=== PATIENT | female | born 2000 | race Caucasian/White ===

== ENCOUNTER 2018-05-12 22:23 | Observation (INO) | payer OTHER ==
[2018-05-12] MEDS ORDERED: ONDANSETRON 4 MG/2 ML VIAL IVP ONE (22:46)
[2018-05-12] MEDS ORDERED: NS 1,000 ML IV ONE (22:46)
--- NOTE | 2018-05-12 22:47 | EDPHY ---
H & P Stated Complaint: LLQ ABD PAIN Time Seen by Provider: 05/12/18 22:29 HPI/ROS: CHIEF COMPLAINT: Bilateral lower abdominal pain left greater than right, HISTORY OF PRESENT ILLNESS: 17-year-old female no history of abdominal surgeries, via private vehicle complaining of left lower quadrant abdominal pain since this morning with associated nausea, vomiting. Bowel movements normal. Urinary habits normal. No flank pain. No vaginal bleeding. No dyspareunia. PRIMARY CARE PROVIDER: REVIEW OF SYSTEMS: 10 systems reviewed and negative with the exception of the elements mentioned in the history of present illness PAST MEDICAL & SURGICAL HISTORY: Chlamydia 1 year ago which was treated SOCIAL HISTORY: Student. PHYSICAL EXAM (Prior to examination, patient consented to physical exam, hands were washed and my usual and customary physical exam procedures followed) 1) GENERAL: Well-developed, well-nourished, alert and oriented. Appears uncomfortable 2) HEAD: Normocephalic, atraumatic 3) HEENT: Pupils equal, round, reactive to light bilaterally. Sclera anicteric. 4) NECK: Full range of motion, no meningeal signs. 5) LUNGS: Clear auscultation bilaterally, no wheezes, no rhonchi, no retractions. 6) HEART: Regular rate and rhythm, no murmur, no heave, no gallop. 7) ABDOMEN: No guarding, tender to palpation bilateral lower quadrants, left greater than right, negative McBurney's, negative Pittman's, negative Rovsing's, negative peritoneal sign, 8) MUSCULOSKELETAL: Moving all extremities, no focal areas of tenderness, no obvious trauma. No peripheral edema or discoloration. 9) BACK: No CVA tenderness, no midline vertebral tenderness, no fluctuance, no step-off, no obvious trauma, no visual or palpable abnormality. 10) SKIN: No rash, no petechiae. 11) Psychiatric: Patient is oriented X 3, there is no agitation. DIFFERENTIAL DIAGNOSIS: My differential diagnosis includes, but is not limited to, acute appendicitis, acute cholecystitis, bowel obstruction, acute pancreatitis, ovarian torsion, ectopic , gastritis and urinary tract infection. The patient understands that this diagnosis is provisional and can never be 100% accurate. This is a partial list of diagnoses considered. These considerations are based on history, physical exam, past history and reassessment. - Personal History LMP (Females 10-55): Unknown Current Tetanus Diphtheria and Acellular Pertussis (TDAP): Yes - Medical/Surgical History Hx Asthma: No Hx Chronic Respiratory Disease: No Hx Diabetes: No Hx Cardiac Disease: No Hx Renal Disease: No Hx Cirrhosis: No Hx Alcoholism: No Hx HIV/AIDS: No Hx Splenectomy or Spleen Trauma: No Other PMH: DENIES - Social History Smoking Status: Never smoked Constitutional: Initial Vital Signs Temperature (C) 36.5 C 05/12/18 22:27 Heart Rate 94 05/12/18 22:27 Respiratory Rate 16 05/12/18 22:27 Blood Pressure 95/58 L 05/12/18 22:27 O2 Sat (%) 100 05/12/18 22:27 O2 Delivery Mode Room Air Allergies/Adverse Reactions: No Known Allergies Allergy (Unverified 05/12/18 22:26) Home Medications: Medication Instructions Recorded Control 05/12/18 Medical Decision Making - Diagnostics Imaging Results: Imaging Impressions Pelvic/Renal Ultrasound 05/12/18 22:46 Impression: 1. Technically limited study secondary to the presence of extensive bowel gas partially obscuring the adnexal regions. 2. Normal appearance of the endometrium, myometrium, and ovaries, with no torsion or free fluid. Findings were discussed with Mimi Mosquera PA-C at 23:21, on 05/12/2018. Images reviewed by myself ED Course/Re-evaluation: 12:50 p.m.: Patient CT imaging imaging interpreted by [facility] tele[facility]: "Appendix measures at the upper limits of normal with mild mucosal hyperenhancement. This may represent an early acute appendicitis in the appropriate clinical setting." Will consult with surgery. Last oral intake 4:00 p.m. today. 12:57 p.m., Consultation with Dr Tavarez who will come to the ER to evaluate patient. 1:52 a.m.:Dr Tavarez has consulted, thinks that acute appendicitis is less than likely. Has agreed to admit the patient for observation which patient is agreeable with after consulting with mother in [place]. 2:13 a.m.: Pelvic examination performed at this time (with female andreina العراقي at bedside): Normal female external genitalia, no lesions visualized. Speculum examination reveals no vaginal bleeding or discharge, normal vaginal rugae, os closed, no cervical motion tenderness, no adnexal tenderness or mass In speaking to the patient further she notes no dyspareunia. She does note a history of Chlamydia 1 year ago which was treated. On exam today she has no cervical motion tenderness, no adnexal tenderness or fullness. Pelvic ultrasound shows no evidence of tubo-ovarian abscess. Will hold on PID treatment at this time. - Data Points Laboratory Results: Laboratory Results 05/12/18 22:53 05/12/18 22:53 05/12/18 05/12/18 05/12/18 23:46 22:53 22:53 WBC RBC Hgb Hct MCV MCH MCHC RDW Plt Count MPV Neut % (Auto) Lymph % (Auto) [place] % (Auto) Eos % (Auto) Baso % (Auto) Nucleat RBC Rel Count Absolute Neuts (auto) Absolute Lymphs (auto) Absolute Monos (auto) Absolute Eos (auto) Absolute Basos (auto) Absolute Nucleated RBC Immature Gran % Immature Gran # RBC/WBC/PLT Morphology Platelet Estimate Sodium 140 mEq/L mEq/L (135-145) Potassium 4.0 mEq/L mEq/L (3.5-5.2) Chloride 104 mEq/L mEq/L (97-110) Carbon Dioxide 21 mEq/l L mEq/l (22-31) Anion Gap 15 mEq/L H mEq/L (6-14) BUN 18 mg/dL mg/dL (7-23) Creatinine 0.5 mg/dL L mg/dL (0.6-1.0) Estimated GFR > 60 Glucose 108 mg/dL H mg/dL (70-100) Calcium 10.0 mg/dL mg/dL (8.5-10.4) Total Bilirubin 0.7 mg/dL mg/dL (0.1-1.4) Conjugated Bilirubin 0.2 mg/dL mg/dL (0.0-0.5) Unconjugated Bilirubin 0.5 mg/dL mg/dL (0.0-1.1) AST 29 IU/L IU/L (14-46) ALT 24 IU/L IU/L (9-52) Alkaline Phosphatase 79 IU/L IU/L (38-126) Total Protein 7.8 g/dL g/dL (6.3-8.2) Albumin 4.9 g/dL g/dL (3.5-5.0) Lipase 89 IU/L IU/L (23-300) Beta HCG, Qual NEGATIVE Urine Color YELLOW Urine Appearance CLEAR Urine pH 6.0 (5.0-7.5) Ur Specific [place] 1.028 (1.002-1.030) Urine Protein NEGATIVE (NEGATIVE) Urine Ketones 2+ H (NEGATIVE) Urine Blood NEGATIVE (NEGATIVE) Urine Nitrate NEGATIVE (NEGATIVE) Urine Bilirubin NEGATIVE (NEGATIVE) Urine Urobilinogen NEGATIVE EU EU (0.2-1.0) Ur Leukocyte Esterase NEGATIVE (NEGATIVE) Urine RBC 1-3 /hpf /hpf (0-3) Urine WBC 1-3 /hpf /hpf (0-3) Ur Epithelial Cells TRACE /lpf /lpf (NONE-1+) Urine Mucus 1+ /lpf /lpf (NONE-1+) Urine Glucose NEGATIVE (NEGATIVE) 05/12/18 22:53 WBC 10.35 10^3/uL H 10^3/uL (3.80-9.50) RBC 5.04 10^6/uL 10^6/uL (4.18-5.33) Hgb 15.5 g/dL g/dL (12.6-16.3) Hct 44.9 % % (38.0-47.0) MCV 89.1 fL fL (81.5-99.8) MCH 30.8 pg pg (27.9-34.1) MCHC 34.5 g/dL g/dL (32.4-36.7) RDW 12.2 % % (11.5-15.2) Plt Count 248 10^3/uL 10^3/uL (150-400) MPV 11.0 fL fL (8.7-11.7) Neut % (Auto) 93.2 % H % (39.3-74.2) Lymph % (Auto) 3.7 % L % (15.0-45.0) [place] % (Auto) 2.5 % L % (4.5-13.0) Eos % (Auto) 0.2 % L % (0.6-7.6) Baso % (Auto) 0.1 % L % (0.3-1.7) Nucleat RBC Rel Count 0.0 % % (0.0-0.2) Absolute Neuts (auto) 9.65 10^3/uL H 10^3/uL (1.70-6.50) Absolute Lymphs (auto) 0.38 10^3/uL L 10^3/uL (1.00-3.00) Absolute Monos (auto) 0.26 10^3/uL L 10^3/uL (0.30-0.80) Absolute Eos (auto) 0.02 10^3/uL L 10^3/uL (0.03-0.40) Absolute Basos (auto) 0.01 10^3/uL L 10^3/uL (0.02-0.10) Absolute Nucleated RBC 0.00 10^3/uL 10^3/uL (0-0.01) Immature Gran % 0.3 % % (0.0-1.1) Immature Gran # 0.03 10^3/uL 10^3/uL (0.00-0.10) RBC/WBC/PLT Morphology TNP Platelet Estimate TNP Sodium Potassium Chloride Carbon Dioxide Anion Gap BUN Creatinine Estimated GFR Glucose Calcium Total Bilirubin Conjugated Bilirubin Unconjugated Bilirubin AST ALT Alkaline Phosphatase Total Protein Albumin Lipase Beta HCG, Qual Urine Color Urine Appearance Urine pH Ur Specific [place] Urine Protein Urine Ketones Urine Blood Urine Nitrate Urine Bilirubin Urine Urobilinogen Ur Leukocyte Esterase Urine RBC Urine WBC Ur Epithelial Cells Urine Mucus Urine Glucose Medications Given: Discontinued Medications Sodium Chloride (Ns) 1,000 mls @ 0 mls/hr IV ONCE ONE PRN Reason: Wide Open Stop: 05/12/18 22:47 Last Admin: 05/12/18 23:11 Dose: 1,000 mls Morphine Sulfate (Morphine) 4 mg IVP EDNOW ONE Stop: 05/12/18 22:47 Last Admin: 05/12/18 23:14 Dose: 4 mg Ondansetron HCl (Zofran) 4 mg IVP EDNOW ONE Stop: 05/12/18 22:47 Last Admin: 05/12/18 23:10 Dose: 4 mg Departure - Departure Disposition: [facility] Clinical Impression: Abdominal pain Qualifiers: Abdominal location: left lower quadrant Qualified Code(s): R10.32 - Left lower quadrant pain Condition: Fair
[2018-05-12 23:04] LABS: PLATELET COUNT 248 10^3/uL (150-400)
[2018-05-12] MEDS ORDERED: IOPAMIDOL (ISOVUE-300) 100 ML BTL ONE (23:47)
--- NOTE | 2018-05-13 01:45 | PDCONSULT ---
Bursar Note: #[id number] Surgical Consult Dictated S MD Daysi, FACS
[2018-05-13] MEDS ORDERED: NS 1,000 ML IV ONE (01:53)
[2018-05-13] MEDS ORDERED: PROMETHAZINE HCL 25 MG/ML INJ IVP PRN (02:04)
[2018-05-13] MEDS ORDERED: KETOROLAC 30 MG/1 ML SDV IVP ONE (02:06)
--- NOTE | 2018-05-13 02:09 | GCON ---
[f rep st] CONSULTATION SURGICAL CONSULT DATE OF CONSULTATION: 05/13/2018 REFERRING PHYSICIAN: SOCORRO Kong CHIEF COMPLAINT: Abdominal pain. HISTORY OF PRESENT ILLNESS: The patient is a 17-year-old female presented to the [facility] for evaluation of abdominal pain. The patient was seen in the emergency room by Pasha Awad PA-C and laboratory studies were obtained and a pelvic ultrasound performed. This was not particularly d iagnostic, and a CT scan of the abdomen and pelvis was subsequently performed, and the interpretation was indeterminate for appendicitis. Surgical consultation was requested. The patient reports feeling onset of symptoms approximately 2 days ago when she experienced some diar patricia and had some mild nausea. The patient had improvement in symptoms and felt better this morning and was able to go work out at the gym. After she returned to her [facility] house at approximately 2 o'clock she started having severe left lower quadrant pain. The patient had several episodes of emes is and came to the emergency department at approximately 10:45 p.m. After receiving morphine and Zof ran, the patient feels improved, though still has left lower quadrant pain. PAST MEDICAL HISTORY: The patient takes control pills. She has had no prior abdominal surgeri es. She has no prior pregnancies. She is sexually active. Last was approximately 1 month ago. She does report occasional vaginal discharge and has not had a period for several years. I should mention also the patient does not smoke cigarettes. She does drink occasional alcohol. Den ies IV drug use. 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 REVIEW OF SYSTEMS: The patient reports diarrhea, nausea, emesis, though had a normal bowel movement earlier today. She reports myalgias and chills, but no measurable fever. She has had no melena, hem atochezia, hematemesis, vaginal bleeding. She does report occasional vaginal discharge. No history of trauma. PHYSICAL EXAMINATION: VITAL SIGNS: Temperature at time of arrival was 36.5. This has not been repe ated since. Blood pressure is 120/70, heart rate is 76, O2 sat is 98% on room air. GENERAL: The primitivo colindres is a pleasant young woman who appears in no acute distress. HEENT: There is no scleral icteru s. NECK: Supple without adenopathy. Trachea is midline. LUNGS: Clear to auscultation. HEART: R egular in rate and rhythm. ABDOMEN: Soft with hypoactive bowel sounds. There is no percussion tend erness. The patient has tenderness to palpation in the left lower quadrant without guarding. There is no palpable mass. There is no right lower quadrant tenderness on my exam. No palpable inguinal m ass, adenopathy or hernia. No flank or CVA tenderness. PELVIC: Not performed (patient does report discomfort on vaginal ultrasound in the left lower quadrant). CT scan images were reviewed and reveal a noninflamed appearing appendix at the upper limits of judy l size with intraluminal air. No fecalith. No surrounding fat stranding. No pericecal or periappen diceal fluid. No mesenteric adenopathy. The small bowel is dilated with fluid throughout. There is fluid throughout the colon with the exception of the sigmoid and rectum which contain solid stool. The stomach is dilated with fluid. LABORATORY STUDIES: WBC is 10.3, hemoglobin 15.5, hematocrit 44.9, platelets are 248,000. Sodium 14 0, potassium 4.0, chloride 104, bicarb 21, BUN 18, creatinine 0.5, glucose 108. Bilirubin 0.7, AST 2 9, ALT 24, alk phos 79, lipase 89. Beta HCG was negative. Urinalysis shows 1-3 RBCs and 1-3 WBCs pe r high-powered field and is negative for leukocyte esterase and nitrites. IMPRESSION: Abdominal pain with a differential including bacterial and viral gastroenteritis, pelvic inflammatory disease, inflammatory bowel disease, and in my opinion least likely appendicitis. The patient has no tenderness in the right lower quadrant and the findings on CT are within the range of normal appearance for appendix. The patient did report pain and discomfort with vaginal probe on ult rasound. A pelvic exam may be helpful and would consider FOOD DEMONSTRATOR consultation for the patient. Ary felder to the hospital for observation, serial exams and FOOD DEMONSTRATOR consultation. /[id number]/MODL
[2018-05-13 06:37] LABS: PLATELET COUNT 189 10^3/uL (150-400)
--- NOTE | 2018-05-13 08:45 | SOAPPROG ---
SOAP Progress Note Assessment/Plan: Assessment: abdominal pain, unclear etiology no clinical or imaging findings to support appendicitis gastroenteritis vs. PID? Plan: trial of diet BUILDING ESTIMATOR consult requested Dr. Gallardo check results of chlamydia/GC 05/13/18 08:45 Subjective: reports less pain, still LLQ nausea, no BM, no emesis Objective: Vital Signs Temp Pulse Resp BP Pulse Ox 36.2 C 95 16 90/54 L 96 05/13/18 08:10 05/13/18 08:10 05/13/18 08:10 05/13/18 08:10 05/13/18 08:10 Laboratory Results 05/13/18 06:15 05/12/18 05/13/18 05/14/18 05:59 05:59 05:59 Intake Total 4000 Output Total 300 Balance 3700 - Pending Discharge Pending Discharge Within 24 Hours: Yes Pending Discharge Date: 05/14/18 Pending Discharge Time: 11:00 Physical Exam - Physical Exam General Appearance: alert, no apparent distress, thin Cardiac/Chest: regular rate, rhythm Abdomen: normal bowel sounds, soft, other (tender LLQ without guarding, no percussion tenderness) Pelvic Exam: other (pelvic exam in ED prior to admission Pasha Mosquera PA-C / patient reports pain during exam) Skin: warm/dry Lymphatic: no adenopathy Neuro/Psych: normal mood/affect, oriented x 3 ICD10 Worksheet Patient Problems: Problems Problem Status Onset Abdominal pain Acute
[2018-05-13] MEDS ORDERED: BISACODYL 10 MG SUPP PR ONE (08:56)
[2018-05-13] MEDS ORDERED: IBUPROFEN 800 MG TAB PO ONE (08:57)
[2018-05-13] MEDS ORDERED: IBUPROFEN 600 MG TAB PO PRN (08:57)
[2018-05-13 11:37] VITALS: BP 91/49
[2018-05-13] MEDS ORDERED: SIMETHICONE 80 MG TAB CHEW PO SCH (13:00)
[2018-05-13] MEDS ORDERED: ACETAMINOPHEN 500 MG TAB PO SCH (14:00)
--- NOTE | 2018-05-13 14:05 | GCON ---
[f rep st] CONSULTATION DATE OF CONSULTATION: 05/13/2018 REASON FOR CONSULTATION: Abdominal pain in a sexually active female. HISTORY OF PRESENT ILLNESS: The patient is a 17-year-old, 0, who had sudden onset of abdomin al pain, primarily on the left side, after eating dinner last night. She presented to the emergency room and had nausea and vomiting and pain. She was admitted for observation. The patient currently at this time appears to be resting comfortably without any pain medication. She does have a history of chlamydia. She was sexually active a month ago. This was with a new partner. She has not had an y STD testing since that time. Patient denies any fevers or chills. She is not having any nausea or vomiting anymore. She is just feeling bloated. She is being managed by General Surgery. PAST MEDICAL HISTORY: Unremarkable. MEDICATIONS: control pills. SURGICAL HISTORY: None. SOCIAL HISTORY: Patient is a student at . She denies tobacco or drug use. She does drink alcohol socially. FAMILY MEDICAL HISTORY: Noncontributory. MAIL OPENER HISTORY: The patient's cycles are regular on her pill. She is occasionally sexually active. She uses control pills for contraception. She had chlamydia and gonorrhea testing last year, which was positive. She is not sure if she had a negative test of cure. She has not had any STD cynthia ting since her most recent partner. They did not use condoms. PHYSICAL EXAMINATION: VITAL SIGNS: Stable. GENERAL APPEARANCE: Alert and oriented x3. PSYCH: Ap propriate affect. MUSCULOSKELETAL: Grossly intact. NEURO: Grossly intact. HEART: Regular. LUNG S: Clear to auscultation bilaterally. ABDOMEN: Soft, nondistended, nontender. No guarding. No re bound. EXTREMITIES: Reveal no calf tenderness or edema. PELVIC: Reveals a mobile posterior uterus with no adnexal masses. No cervical motion tenderness is noted. DATA REVIEWED: CT scan showed noninflamed appearing appendix. The small bowel is dilated with fluid throughout as well as the colon and the sigmoid and rectum contained solid stool. The stomach was d ilated with fluid. Her admission white count was 10.3. Repeat this morning was 7.2. Hemoglobin is 12.7, hematocrit is 37.1. Her platelets are 189. Her urine is negative. Her test is negative. CMP is negati ve. Lizabeth, Gardnerella, and Trichomonas were negative. Chlamydia and gonorrhea testing were negat olvin. REVIEW OF SYSTEMS: Ten-point review of systems is negative. The patient's main complaint right now is bloating. ASSESSMENT AND PLAN: 1. A 17-year-old with recent admission for abdominal pain, suspect gastroenteritis. The patient roger l be given contact information for our office to call the office. The Chlamydia and gonorrhea testin g will not be run until tomorrow afternoon. She is to call our office on Monday to get results, and will be treated if she is positive. We stressed the importance of following up with test results. The patient will follow up with primary care doctor if her upper abdominal pain persists. Discharge instructions were reviewed with the patient, but she will be discharged by Dr. Tavarez. /[id number]/NATALEE
[2018-05-14 11:40] LABS: GC AMPLIFICATION GENPROBE NEGATIVE (NEGATIVE)
== END 2018-05-13 14:30 | disposition home or self-care (01) ==
LOC: FOB 05-13 02:50
PROVIDERS: ADMIT Surgery; ATTEND Surgery
DX: R10.32 Left lower quadrant pain (principal)
CPT/HCPCS: 74177; 76856; 96361; 96374; 96375; 99285; G0378; J1885; J2270; J2405; Q9967

== ENCOUNTER 2018-05-17 17:58 | Emergency (ER) | payer OTHER ==
--- NOTE | 2018-05-17 18:23 | EDPHY ---
General Time Seen by Provider: 05/17/18 18:07 Narrative: CLINICAL IMPRESSION: Constipation ASSESSMENT/PLAN: 17-year-old female presents to the emergency department complaining of constipation and difficulty having a bowel movement x1 week. Vital signs are stable, afebrile, no respiratory distress. Abdomen with generalized discomfort but no distention, rigidity, or focal peritoneal findings. Patient was admitted to this hospital less than a week ago for left lower quadrant abdominal pain, had an unremarkable pelvic ultrasound and CT scan, had consultations with both General surgery and OBGYN, had negative STD testing and reports the pain she was admitted for is now gone. Repeat x-rays today reveal a substantial stool burden in the colon with mild colonic dilation. Clinically this patient does not have symptoms suggestive of toxic megacolon. There is no underlying suggestion of obstruction. She has tried 2 bottles of magnesium citrate at home and 2 enemas throughout the course of a week. She received a soapsuds enema with minimal output in the ED. She was given a Bisacodyl suppository and instructions for MiraLax at home. PCP follow-up recommended. Warning signs return to ED sooner outlined and discharge. DIFFERENTIAL DX: Differential diagnosis includes but not limited to constipation, small-bowel obstruction, colitis, diverticulitis, dehydration ED PROCEDURES: See lab and/or imaging results below ED COURSE: 6:20 p.m.: Patient seen and assessed by myself. Plan for x-rays of the abdomen to assess for small-bowel obstruction and constipation. 7:15 p.m.: X-ray results reviewed with the patient. Significant constipation appreciated, no small-bowel obstruction. Options for treatment discussed. Patient would like to try a soapsuds enema in the emergency department 8:00pm: Minimal evacuation of stool after enema. Will give biscadyl suppository and miralax at home. CHIEF COMPLAINT: Constipation HPI: 17-year-old female presents to the emergency department with complaints of constipation and inability to have bowel movement. Patient reports she was seen in our emergency department on the of this month, admitted overnight, discharged on the . At that time she was complaining of lower abdominal pain. She received ultrasound and CT scan, was evaluated by General surgery as well as OBGYN, had no surgical process identified, normal labs, a including STD testing. She states prior to coming to the emergency department on the , she was struggling with constipation. [facility] She has tried 2 full bottles of Mag citrate, 3 separate enemas, and an ilgi-dck-ociornc pill laxative without results. She reports that she is having difficulty passing flatus. She has been eating but admits her appetite has been down. No vomiting but does admit to nausea. She has never had problems with constipation before. No dietary changes. She is not taking narcotic prescription medication. No reported fever or chills. She took a test today that was negative but is not late on a menstrual cycle. She reports the pain she was here for on the is now better. PAST MEDICAL HISTORY: None reported See triage summary and nurse notes for addition applicable history Pertinent Past Surgical History: No prior abdominal surgery Family History: No family history of IBS, Crohn's, colitis, diverticulitis Social History: Student at [employer], nonsmoker REVIEW OF SYSTEMS: A full 10 point review of systems was negative except for those mentioned in HPI. PHYSICAL EXAM: General Appearance: Alert, oriented, appropriate, cooperative, NAD, well hydrated, non-toxic appearing, VSS, no hypoxia. Respiratory: There are no retractions, lungs are clear to auscultation. Cardiac: Regular rate and rhythm, no murmurs or gallops. Gastrointestinal: Abdomen is soft, generally uncomfortable to palpation, bowel sounds normal, no masses/hernia, no rigidity, guarding or focal peritoneal findings. Skin: Warm, dry, no rashes, no nodules on palpation. MEDICAL DECISION MAKING: Patient was seen independently. Secondary supervising physician at time of evaluation was: Dr. Fonseca . Diagnosis: Constipation . New, requires workup Summary: See Assessment and Plan for summary of ED visit Independent visualization of images, tracing, or specimens: Yes. Decision to obtain medical records or history from someone other than the patient: Now Review / Summarize previous medical records: Reviewed recent ED and admission notes Discussed patient with another provider: No Patient Progress: Stable for discharge. - Diagnostics Imaging Results: Imaging Impressions Abdomen X-Ray 05/17/18 18:27 Impression: Extensive constipation through the descending colon with mild proximal colonic dilatation without definite evidence of obstruction. - History Smoking Status: Never smoked - Objective Vital Signs: Initial Vital Signs Temperature (C) 37 C 05/17/18 18:02 Heart Rate 87 05/17/18 18:02 Respiratory Rate 16 05/17/18 18:02 Blood Pressure 113/70 05/17/18 18:02 O2 Sat (%) 95 05/17/18 18:02 O2 Delivery Mode Room Air Allergies/Adverse Reactions: amoxicillin Allergy (Verified 05/17/18 18:02) Home Medications: Medication Instructions Recorded Control 05/12/18 Magnesium Citrate 300 ml (*) 05/17/18 Medications Given: Discontinued Medications Bisacodyl (Dulcolax Rectal) 10 mg NM EDNOW ONE Stop: 05/17/18 20:18 Last Admin: 05/17/18 20:41 Dose: 10 mg Departure - Departure Disposition: Home, Routine, Self-Care Clinical Impression: Constipation Qualifiers: Constipation type: unspecified constipation type Qualified Code(s): K59.00 - Constipation, unspecified Condition: Good Instructions: Constipation (ED) Additional Instructions: DISCHARGE INSTRUCTIONS FROM YOUR DOCTOR Thank you for visiting our emergency department today. You were treated by a physician assistant press operator offset today and your case was reviewed with our ED Attending physician. Please keep in mind that discharge from the emergency department does not mean that there is nothing wrong - it simply means that we have not identified an emergency condition that requires further evaluation or treatment in the hospital. You should always plan to follow up with primary care for re- evaluation of your condition in the next 2-3 days. If you have been referred to a specialist, please call as soon as possible (today or tomorrow) to schedule your follow up appointment at the appropriate time. [X-RAY SHOWED CONSTIPATION. YOU RECEIVED AN ENEMA IN THE EMERGENCY DEPARTMENT AND A SUPPOSITORY. AT HOME, PLEASE PURCHASE MIRALAX. MIX 1 CAP FULL PER DAY IN 4-8 OZ OF LIQUID AND DRINK IMMEDIATELY. FOLLOW THIS WITH 1-2 GLASSES OF WARM WATER. CONTINUE TO EAT A HIGH-FIBER DIET. RETURN TO THE EMERGENCY DEPARTMENT IMMEDIATELY FOR SEVERE ABDOMINAL PAIN, INABILITY TO PASS STOOL AFTER 2-3 DAYS, HIGH FEVERS, VOMITING, OR ANY OTHER CONCERNS. ] People present with illnesses and injuries in different ways, and it is always possible that we have missed something. You may always return for re-evaluation if symptoms worsen or if they are not improving or if you develop new/different symptoms. Again, thank you for choosing our emergency department. We hope that you feel better. Referrals: NONE *PRIMARY CARE P,. [Primary Care Provider] - As per Instructions () [facility] [Clinic] - 1-2 days without fail
[2018-05-17] MEDS ORDERED: BISACODYL 10 MG SUPP PR ONE (20:17)
[2018-05-17 20:40] VITALS: BP 115/68
== END 2018-05-17 20:37 | disposition home or self-care (01) ==
DX: K59.00 Constipation, unspecified (principal)

== ENCOUNTER 2018-05-19 13:45 | Emergency (ER) | payer OTHER ==
--- NOTE | 2018-05-19 14:02 | EDPHY ---
H & P Stated Complaint: seen here for constipation, no bm x1.5 weeks, abd pain, nausea Time Seen by Provider: 05/19/18 14:02 HPI/ROS: HPI: This is a 17-year-old female who presents with Chief Complaint: seen here for constipation, no bm x1.5 weeks, abd pain , nausea Location: Periumbilical Quality: Pain, constipation Duration: Signs and Symptoms: no fever, + nausea, no vomiting, no hematemesis, no blood in stool, no abdominal bloating, no diarrhea, no back pain, no urinary symptoms , no vaginal bleeding/discharge, no indigestion, no chest pain, no shortness of breath Timing: Worsening Severity: Moderate to severe Context: Patient is student at [employer] presents for the 3rd time to the emergency room this month with complaints of periumbilical abdominal pain that is now moderate to severe in intensity and described as cramping in nature. Patient reports that she has only passing a limited amount of flatus. Patient was admitted to this hospital on 05/13/2018 diagnosed with gastroenteritis versus PID. She had a unremarkable CT abdomen and pelvis scan as well as unremarkable pelvic ultrasound. STD testing was negative. She was seen by both OBGYN and General surgery with final diagnosis of gastroenteritis. Patient reports that she has not had a bowel movement in 10-12 days. Patient reports that she feels nauseous and is unable to eat. Denies any vomiting, fever, urinary symptoms, vaginal discharge, vaginal bleeding. Patient has taken 2 bottles of magnesium citrate, suppository x3, soap suds enema in the emergency room on 05/17/2017 and MiraLax daily with no bowel movement. Modifying Factors: See above Comment: ROS: A comprehensive 10 system review of systems is otherwise negative aside from elements mentioned in the history of present illness. MEDICAL/SURGICAL/SOCIAL HISTORY: Medical history: Generally healthy. Does not take any regular medications. Takes control pills. Surgical history: Denies Social history: Student at [employer]. Family history noncontributory. CONSTITUTIONAL: Polite and cooperative teenage white female, awake and alert, no obvious distress HEENT: Atraumatic and normocephalic, PERRL, EOMI. Nares patent; no rhinorrhea; no nasal mucosal edema. Tympanic membranes clear. Oropharynx clear, no exudate and moist pink mucosa. Airway patent. No lymphadenopathy. No meningismus. Cardiovascular: Normal S1/S2, regular rate, regular rhythm, without murmur rub or gallop. PULMONARY/CHEST: Symmetrical and nontender. Clear to auscultation bilaterally. Good air movement. No accessory muscle usage. ABDOMEN: Soft, nondistended, moderate generalized tenderness, no rebound, no guarding, no peritoneal signs, no masses or organomegaly. No CVAT. Bowel sounds heard x4 quadrants. EXTREMITIES: 2/2 pulses, strength 5/5, no deformities, no clubbing, no cyanosis or edema. NEUROLOGICAL: no focal neuro deficits. GCS 15. SKIN: Warm and dry, no erythema. no rash. Good capillary refill. Source: Patient, Old records Exam Limitations: No limitations - Personal History Current Tetanus/Diphtheria Vaccine: Unsure Current Tetanus Diphtheria and Acellular Pertussis (TDAP): Unsure - Medical/Surgical History Hx Asthma: No Hx Chronic Respiratory Disease: No Hx Diabetes: No Hx Cardiac Disease: No Hx Renal Disease: No Hx Cirrhosis: No Hx Alcoholism: No Hx HIV/AIDS: No Hx Splenectomy or Spleen Trauma: No Other PMH: does not get period due to control - Social History Smoking Status: Never smoked Constitutional: Initial Vital Signs Temperature (C) 37.3 C 05/19/18 13:53 Heart Rate 85 05/19/18 13:53 Respiratory Rate 16 05/19/18 13:53 Blood Pressure 97/62 L 05/19/18 13:53 O2 Sat (%) 95 05/19/18 13:53 O2 Delivery Mode Room Air Allergies/Adverse Reactions: amoxicillin Allergy (Verified 05/19/18 15:21) Hives Home Medications: Medication Instructions Recorded Control 1 tab PO DAILY 05/12/18 Ferrous Sulfate [Ferrous Sulf 325 325 mg PO DAILY 05/19/18 MG (*)] Medical Decision Making - Diagnostics Imaging Results: Imaging Impressions Abdomen X-Ray 05/19/18 14:14 Impression: Significant improvement in degree of retained fecal material in the colon compatible with resolution of constipation. No evidence of free air. ED Course/Re-evaluation: Vital signs reviewed and stable upon arrival. Patient had a CT abdomen and pelvis scan and pelvic ultrasound 6 days ago and do not feel the benefit of repeating this. Abdominal x-ray ordered along with IV access, laboratory studies Patient made NPO and given 1 L normal saline 1454: Laboratory studies reviewed. No signs of leukocytosis/anemia/platelet dysfunction/PHILIP/elevated LFTs/electrolyte imbalance/pancreatitis/. 1522: Abdominal x-ray my read shows no significant constipation; significant improvement when compared to prior x-ray and no signs of obstruction. Reassessed patient who now reports that she had good results from her enema performed in the emergency room 2 days ago. She also reports that she had a large meal for dinner last night. She complains of mild abdominal cramping. She wishes to be discharged home at this time. I believe that this is reasonable as her imaging is improved and she is tolerating p.o. This patient was seen under the supervision of my secondary supervising physician. I evaluated care for this patient with attending. Differential Diagnosis: Abdominal pain including but not limited to appendicitis, cholecystitis, gastritis and urinary tract infection. - Data Points Laboratory Results: Laboratory Results 05/19/18 14:15 05/19/18 14:15 05/19/18 05/19/18 05/19/18 14:15 14:15 14:15 WBC 4.50 10^3/uL 10^3/uL (3.80-9.50) RBC 4.63 10^6/uL 10^6/uL (4.18-5.33) Hgb 14.1 g/dL g/dL (12.6-16.3) Hct 42.2 % % (38.0-47.0) MCV 91.1 fL fL (81.5-99.8) MCH 30.5 pg pg (27.9-34.1) MCHC 33.4 g/dL g/dL (32.4-36.7) RDW 12.3 % % (11.5-15.2) Plt Count 243 10^3/uL 10^3/uL (150-400) MPV 11.1 fL fL (8.7-11.7) Neut % (Auto) 51.1 % % (39.3-74.2) Lymph % (Auto) 38.2 % % (15.0-45.0) [place] % (Auto) 8.2 % % (4.5-13.0) Eos % (Auto) 1.6 % % (0.6-7.6) Baso % (Auto) 0.7 % % (0.3-1.7) Nucleat RBC Rel Count 0.0 % % (0.0-0.2) Absolute Neuts (auto) 2.30 10^3/uL 10^3/uL (1.70-6.50) Absolute Lymphs (auto) 1.72 10^3/uL 10^3/uL (1.00-3.00) Absolute Monos (auto) 0.37 10^3/uL 10^3/uL (0.30-0.80) Absolute Eos (auto) 0.07 10^3/uL 10^3/uL (0.03-0.40) Absolute Basos (auto) 0.03 10^3/uL 10^3/uL (0.02-0.10) Absolute Nucleated RBC 0.00 10^3/uL 10^3/uL (0-0.01) Immature Gran % 0.2 % % (0.0-1.1) Immature Gran # 0.01 10^3/uL 10^3/uL (0.00-0.10) Sodium 139 mEq/L mEq/L (135-145) Potassium 4.0 mEq/L mEq/L (3.5-5.2) Chloride 105 mEq/L mEq/L (97-110) Carbon Dioxide 24 mEq/l mEq/l (22-31) Anion Gap 10 mEq/L mEq/L (6-14) BUN 11 mg/dL mg/dL (7-23) Creatinine 0.6 mg/dL mg/dL (0.6-1.0) Estimated GFR > 60 Glucose 86 mg/dL mg/dL (70-100) Calcium 9.4 mg/dL mg/dL (8.5-10.4) Total Bilirubin 0.2 mg/dL mg/dL (0.1-1.4) Conjugated Bilirubin 0.1 mg/dL mg/dL (0.0-0.5) Unconjugated Bilirubin 0.1 mg/dL mg/dL (0.0-1.1) AST 48 IU/L H IU/L (14-46) ALT 59 IU/L H IU/L (9-52) Alkaline Phosphatase 61 IU/L IU/L (38-126) Total Protein 6.9 g/dL g/dL (6.3-8.2) Albumin 4.3 g/dL g/dL (3.5-5.0) Lipase 174 IU/L IU/L (23-300) Beta HCG, Qual NEGATIVE Medications Given: Discontinued Medications Sodium Chloride (Ns) 1,000 mls @ 0 mls/hr IV EDNOW ONE; Wide Open PRN Reason: Protocol Stop: 05/19/18 14:15 Last Admin: 05/19/18 14:20 Dose: 1,000 mls Departure - Departure Disposition: Home, Routine, Self-Care Clinical Impression: History of constipation Condition: Good Instructions: Constipation (ED), High Fiber Diet (ED) Additional Instructions: Consume a minimum of 8-10 glasses of water or electrolyte fluid replacement drinks that include Gatorade, Powerade, Pedialyte. Eat a bland diet for the next 48 hours and then slowly advance as tolerated. Take xmij-[id number] probiotics as needed. Use aecy-cmo-ubmqsjk simethicone/Gas-X as needed for abdominal gas pain. [facility] or [facility]ology if symptoms continue to persist. Referrals: [facility],. [Primary Care Provider] - As per Instructions Adam Ray MD, FACG [Medical Doctor] - As per Instructions
[2018-05-19] MEDS ORDERED: NS 1,000 ML IV ONE (14:14)
[2018-05-19 14:44] LABS: PLATELET COUNT 243 10^3/uL (150-400)
[2018-05-19 15:36] VITALS: BP 117/72
== END 2018-05-19 15:33 | disposition home or self-care (01) ==
DX: R10.33 Periumbilical pain (principal); E86.9 Volume depletion, unspecified